=== PATIENT | female | born 1985 | race Caucasian/White ===

== ENCOUNTER 2019-05-12 06:27 | Day surgery (SDC) | payer OTHER ==
[2019-05-11 12:35] LABS: Urine Appearance CLEAR; Urine Bilirubin NEGATIVE (NEG); Urine Blood NEGATIVE (NEG); Urine Color YELLOW; Urine Glucose NEGATIVE (NEG); Urine Protein NEGATIVE (NEG); Urine Specific Gravity <=1.005 (1.005-1.030); Urine Urobilinogen 0.2 mg/dL (0.2-1.0)
[2019-05-11 12:37] LABS: Absolute Lymphocytes (CBC) 3.3 K/uL (0.7-4.9); Basophils % 0.7 % (0-1.3); Hematocrit 45.2 % (36.0-45.0); Lymphocytes % 28.9 % (15.3-44.8); MPV 7.2 fL (7.6-11.3); RBC Red Blood Cell Count 5.15 M/uL (3.86-4.86)
[2019-05-11 12:41] LABS: Specific Gravity < 1.005 (1.005-1.030)
[2019-05-11 12:45] LABS: Urine Microscopic Reflex NO UMIC
[2019-05-12 06:52] LABS: Specific Gravity 1.025 (1.005-1.030)
[2019-05-12] MEDS ORDERED: SCOPOLAMINE HYDROBROMIDE PATCH TD ONE (06:53)
[2019-05-12] MEDS ORDERED: Ringers Lactate 1,000 ML IV ONE (06:53)
[2019-05-12] MEDS ORDERED: NA CHLORIDE 0.9% 1,000 ML ONE (07:13)
[2019-05-12] MEDS ORDERED: propofoL 200 MG/20 ML VIAL IV ONE (07:19)
[2019-05-12] MEDS ORDERED: ROCURONIUM 50 MG/5 ML VIAL IV ONE (07:19)
[2019-05-12] MEDS ORDERED: LIDOCAINE 2% MPF 5 ML VIAL ONE (07:19)
[2019-05-12] MEDS ORDERED: FENTANYL CITR 100 MCG/2 ML ONE ×2 (07:19→08:42)
[2019-05-12] MEDS ORDERED: dexAMETHasone 10 MG/ML VIAL ONE (07:19)
[2019-05-12] MEDS ORDERED: ONDANSETRON 4 MG/2 ML VIAL ONE ×2 (07:20→10:48)
[2019-05-12] MEDS ORDERED: DIPHENHYDRAMINE 50 MG/ML VIAL ONE (07:20)
[2019-05-12] MEDS ORDERED: MIDAZOLAM HCL 2 MG/2 ML INJ ONE (07:20)
[2019-05-12] MEDS ORDERED: METHYLENE BLUE 0.5% 10 ML AMP ONE (07:45)
[2019-05-12] MEDS: BUPIVACAINE 0.25% PF 30 ML VIAL ONE ×2 (08:33→08:40)
[2019-05-12] MEDS ORDERED: MEPERIDINE HCL 25 MG/0.5 ML ONE (08:42)
[2019-05-12] MEDS ORDERED: NS 0.9% VIAL 20 ML ONE ×2 (08:42→08:52)
[2019-05-12] MEDS ORDERED: KETOROLAC 30 MG/ML INJ ONE (08:43)
[2019-05-12] MEDS ORDERED: VECURONIUM 10 MG/VIAL IV ONE (08:43)
[2019-05-12] MEDS ORDERED: CEFAZOLIN SODIUM 1 GM/VIAL ONE (08:52)
[2019-05-12] MEDS: Ringers Lactate 1,000 ML IV ONE ×2 (09:00→09:10)
--- NOTE | 2019-05-12 10:00 | P.OP ---
Preoperative diagnosis: Appendicitis Postoperative diagnosis: Appendicitis Primary procedure: Laparoscopic Appendecotmy Anesthesia: GETA Estimated blood loss: <1cc Specimen: Vermiform Appendix Findings: Inflammatory changes to RLQ consistent w/ early appendicitis Complications: None Transferred to: Recovery Room Condition: Good
[2019-05-12] MEDS ORDERED: NEOSTIGMINE 1 MG/ML -5 ML ONE (10:05)
[2019-05-12] MEDS ORDERED: GLYCOPYRROLATE 0.2 MG/ML SYR ONE (10:05)
[2019-05-12] MEDS: HYDROMORPHONE HCL 1 MG/ML INJ ONE ×2 (10:47→10:52)
--- NOTE | 2019-05-12 10:59 | OP ---
Date of Procedure: 05/12/2019 Surgeon: Janell Forde MD Preoperative Diagnoses: 1.Right lower quadrant pain. 2.History of endometriosis. 3.Pelvic pain. 4.Deep dyspareunia. 5.Heavy periods. Postoperative Diagnoses: 1.Right lower quadrant pain. 2.History of endometriosis. 3.Pelvic pain. 4.Deep dyspareunia. 5.Heavy periods. Procedures Performed: Diagnostic hysteroscopy, diagnostic laparoscopy, chromotubation, lysis of ilea l and cecal adhesions, and appendectomy by Dr. Colvin, please refer to that note. Anesthesia: General endotracheal. Specimens: Periovarian adhesions, appendix. Complications: No complications. Drains: No drains. Condition: Stable. Findings: Uterus unremarkable. Cavity undistorted. Normal tubal ostia. Endometrium unremarkable. On laparoscopy, the left tube completely normal appearing and flushed easily with chromotubation. T he right tube appeared to have slight irregularity on the surface promotional representative of possible tubal ad hesions and when chromotubation was performed, initially there appeared to be dilation of the distal third of the tube. However, on flushing further with the dilute methylene blue, was able to open up and there was a strong jet of blue dye from the fimbriated end. No gross evidence of endometriosis o n close examination. There were adhesions of the ileum to the right lower quadrant at the level of t he pelvic brim and then cecal adhesions to the right anterior abdominal wall and right lateral wall. The appendix appeared to be slightly distended. No gross evidence of an active purulent process. 2 g of Ancef was given and patient had an appendectomy. For the lysis of adhesions, the length of that case was more than 50%. Description Of Procedure: After informed consent was verified, patient was taken back to OR, placed in the supine fashion on the operating table, general anesthesia given, placed in the dorsal lithotom y position. Pelvic exam performed. Uterus anteflexed. No adnexal masses. No nodularity in the cul -de-sac, which was smooth. Abdomen, vulva, vagina, and perineum were prepped and draped in a sterile fashion. Peacock was placed to drain the bladder and a speculum placed to expose the cervix. Anterio r lip grasped with 2 Allis clamps. Diagnostic SlimLine hysteroscope was used for a direct hysterosco py. Cavity unremarkable. Both tubal ostia were visualized. Endometrium normal. Scope removed. Di agnostic VCare introduced into the uterus, fixed in place, and this area was draped. Peacock was conne cted to a drainage bag. 1 cm infraumbilical incision was made with a scalpel using the open laparoscopy technique. Fascia wa s incised, tagged with 0 Vicryl sutures on each side. Then, peritoneum was entered bluntly. S retra ctors placed. Teddy introduced. Site of entry was checked, unremarkable. Upper abdominal surface unremarkable. No perihepatic adhesions. Patient was placed in the Trendelenburg position. 5 mm suprapubic and left lower quadrant ports were placed after Marcaine was injected at the fascia and the skin. Then, close inspection of the anteri or pelvic peritoneum was conducted and there were adhesions from her , but no evidence of end ometriosis. Posterior peritoneum closely inspected. No evidence of any endometriosis seen. There w ere adhesions around the left tube and ovary and these were taken down sharply and handed out for per manent pathology as specimen. On the right side, the tube had slight irregularity on the surface, amaya specting adhesions in the tube. On chromotubation, methylene blue was diluted with 30 mL of normal s [place] and injected. 1 ampule was mixed with 40 mL of normal saline and the first 20 mL was injected. There was easy flush of the left tube, however, possible distal hydrosalpinx seen on the first inje ction with the blue dye, however, later with the second injection with the pressure of this, the tube had opened up and there was a small amount of dye and then later there was a strong jet showing that the tube was open. The ovary was completely unremarkable. After there was no abnormality noted in the pelvic organs, attention was directed to the right lower quadrant. Consult was obtained from General Surgery, Dr. Colvin, for possible appendectomy due to t he findings as dictated above in the right lower quadrant. We started to take down the bowel adhesio ns sharply with scissors from the lateral wall after identifying the pelvic brim structures including the iliac vessels and the ureter. Once these were taken down, the ileum was released from the right lower quadrant. The cecal adhesions were taken down. They were taken down systematically with push -spread technique creating windows and sharp dissection with scissors and LigaSure was opened up for hemostasis as well. Once this was done and the cecum was all dropped down, the mesoappendix was take n down skeletonizing the base of the appendix. Please refer to Dr. Colvin's note. Thorough irrigation and suction of the pelvic cavity were performed. 2 g of Ancef was given in prepa ration for the appendectomy and rest of the procedure turned over to Dr. Colvin. Patient has a foll owup with me in 1 week. She will follow up according to her prior appointment. She has a prescripti on for Tylenol No. 3 and instructions for recovery have been given to this patient. EBL was minimal. Instrument, needle, and sponge counts until now were correct. VCare was removed. Peacock was left i n place. DEVI/KRISTYN Voice ID: [id number] Report ID: [id number]
[2019-05-12] MEDS ORDERED: HYDROCODONE/APAP 5/325 MG TAB ONE (12:20)
[2019-05-12 12:52] VITALS: TEMP 97; O2SAT 98
[2019-05-12 14:50] VITALS: BP 116/72
--- NOTE | 2019-05-12 16:10 | OP ---
Date of Procedure: 05/12/2019 Surgeon: Dandy Colvin MD, Intraoperative consult requested by Dr. Janell Forde. I was called by Dr. Forde, who during t he course of her procedure, please see Dr. Forde's note for full details, found that the patient h ad inflammatory change to the right lower quadrant consistent with possible early appendicitis and as such, I was consulted for an intraoperative consultation. Preoperative Diagnosis: Early acute appendicitis. Postoperative Diagnosis: Early acute appendicitis. Procedure Performed: Laparoscopic appendectomy. Anesthesia: General endotracheal. Estimated Blood Loss: 1 mL. Specimen: Vermiform appendix. Findings: Inflammatory changes to right lower quadrant consistent with early appendicitis. Complication: None. Disposition: Transferred to recovery room in good condition. Procedure In Detail: After intraoperative consult was obtained, the patient was prepped and draped i n the usual sterile fashion. Dr. Forde performed her portion of procedure, had 3 trocars, 1 in th e infraumbilical position, 1 in the suprapubic position, 1 in the left lower quadrant. I used the [facility] set of trocars to proceed with the procedure. I then placed the camera, 5 mm 30 degree optical ca benita into the patient's abdomen. Position of the patient is head down, right side up position. Gras ped the patient's cecum and elevated the appendix which was found to be evident with early acute appe ndicitis at this time. I then used the LigaSure device to skeletonize a mesoappendiceal window at th e confluence of the cecum. The Endo NAVJOT 35 blue load was fired across the base of appendix and the r emainder of the mesoappendix was taken down using LigaSure device. The appendix was placed in EndoCa tch bag and removed through the umbilical trocar site for pathologic examination. The abdomen was th en completely re-insufflated at this time. The area was copiously irrigated multiple times until com pletely clear and suctioned out completely dry. I inspected the abdomen. No additional bleeding at the end of the procedure. I then used the stay sutures previously placed to close the umbilical troc ar site after the umbilical trocar was removed. The area was inspected and had good hemostasis and g ood approximation of tissues. No additional hemostatic was required. The abdomen was then completel y desufflated under direct visualization without evidence of complication. All skin incisions copiou sly irrigated and closed with 4-0 Monocryl in a running fashion. Dermabond placed over top. Patient tolerated the procedure without any complication and transferred to PACU in good condition. All cou nts were correct at the end of the case. DENISA/KRISTYN Voice ID: [id number] Report ID: [id number]
== END 2019-05-12 14:30 | disposition home or self-care (01) ==
LOC: OR 06:27
PROVIDERS: ATTEND Obstetrics & Gynecology
PROC: 3E1P78X Irrigation of Female Reproductive using Irrigating Substance, Via Natural or Artificial Opening, Diagnostic (ICD-10-PCS; 2019-05-12)
PROC: 0DNW4ZZ Release Peritoneum, Percutaneous Endoscopic Approach (ICD-10-PCS; 2019-05-12)
PROC: 0UJD8ZZ Inspection of Uterus and Cervix, Via Natural or Artificial Opening Endoscopic (ICD-10-PCS; 2019-05-12)
PROC: 0DTJ4ZZ Resection of Appendix, Percutaneous Endoscopic Approach (ICD-10-PCS; principal; 2019-05-12 07:30)
DX: N92.0 Excessive and frequent menstruation with regular cycle (principal); K35.80 Unspecified acute appendicitis; N94.12 Deep dyspareunia; K66.0 Peritoneal adhesions (postprocedural) (postinfection); N39.3 Stress incontinence (female) (male); F32.9 Major depressive disorder, single episode, unspecified; F17.210 Nicotine dependence, cigarettes, uncomplicated; Z80.3 Family history of malignant neoplasm of breast; Z83.3 Family history of diabetes mellitus; Z82.3 Family history of stroke
CPT/HCPCS: 85025; 36415; 86900; 86850; 81025 ×2; 86901; 88304 ×2; 81003; 44970; 58350; 49329; 58555; J2704; J1200; J2250; J3010 ×2; J1100; J2175; J1170; J2710; J7120 ×2; J7030; J2405 ×2; J0690; 88305